=== PATIENT | male | born 1995 | race Caucasian/White ===

== ENCOUNTER 2020-05-17 06:03 | Emergency (ER) | payer OTHER ==
[2020-05-17] MEDS ORDERED: NAPROXEN500 MG PO (08:22)
== END 2020-05-17 09:21 | disposition home or self-care (01) ==
LOC: FER 06:03
DX: S00.12XA Contusion of left eyelid and periocular area, initial encounter (principal); S00.511A Abrasion of lip, initial encounter; M25.462 Effusion, left knee; F17.200 Nicotine dependence, unspecified, uncomplicated; Z23 Encounter for immunization; W50.0XXA Accidental hit or strike by another person, initial encounter; V03.90XA Pedestrian on foot injured in collision with car, pick-up truck or van, unspecified whether traffic or nontraffic accident, initial encounter
CPT/HCPCS: 70450; 73564; 73600; 90471; 90714